=== PATIENT | male | born 1995 | race Caucasian/White ===

== ENCOUNTER 2021-11-27 17:44 | Emergency (ER) | payer BC, OTHER ==
[2021-11-27 18:03] VITALS: BP 123/71; PULSE 73; TEMP 98.2; BMI 18.0
== END 2021-11-27 18:44 | disposition home or self-care (01) ==
LOC: FER 17:44
DX: S09.90XA Unspecified injury of head, initial encounter (principal); W22.8XXA Striking against or struck by other objects, initial encounter
CPT/HCPCS: 99281-25